=== PATIENT | female | born 1965 | race Caucasian/White ===

== ENCOUNTER 2023-03-19 17:40 | Emergency (ER) | payer MEDICAID, OTHER ==
[~2023-03-19] VITALS: Ht 152.4 cm; Wt 81.0 kg
[2023-03-19 17:49] VITALS: BP 180/81; PULSE 101; RESP 20; TEMP 98.4; O2SAT 97
== END 2023-03-19 20:07 | disposition left against medical advice (07) ==
LOC: ER 17:40
DX: T17.228A Food in pharynx causing other injury, initial encounter (principal); Z53.21 Procedure and treatment not carried out due to patient leaving prior to being seen by health care provider; X58.XXXA Exposure to other specified factors, initial encounter; Y93.89 Activity, other specified; Y92.89 Other specified places as the place of occurrence of the external cause; Y99.8 Other external cause status
CPT/HCPCS: 99281